=== PATIENT | male | born 1985 | race Hispanic/Latino ===

== ENCOUNTER 2023-11-29 13:26 | Emergency (ER) | payer SELFPAY ==
[2023-11-29] MEDS ORDERED: Fluorescein Opthalmic Strip ONE (15:16)
[2023-11-29] MEDS ORDERED: Proparacaine 0.5% Opth 15 ML BOT ONE (15:16)
[2023-11-29] MEDS ORDERED: Timolol 0.5% Ophth Soln 5 ml Bottle R EYE SCH (15:45)
== END 2023-11-29 15:54 | disposition home or self-care (01) ==
LOC: ERS 13:26
DX: H57.11 Ocular pain, right eye (principal); H40.051 Ocular hypertension, right eye
CPT/HCPCS: 99283